=== PATIENT | female | born 1990 | race Caucasian/White ===

== ENCOUNTER 2018-08-15 10:03 | Outpatient (CLI) | payer MEDICAID | END 2018-08-15 23:59 | disposition home or self-care (01) | LOC: 64 CT 10:03 | PROVIDERS: ATTEND Internal Medicine | DX: N20.0 Calculus of kidney (principal); J98.11 Atelectasis; N28.89 Other specified disorders of kidney and ureter; K83.8 Other specified diseases of biliary tract; R91.8 Other nonspecific abnormal finding of lung field; Z90.49 Acquired absence of other specified parts of digestive tract; Z93.1 Gastrostomy status | CPT/HCPCS: 74176 ==